=== PATIENT | female | born 1965 | race Caucasian/White ===

== ENCOUNTER 2020-10-30 23:17 | Emergency (ER) | payer OTHER ==
[2020-10-30] MEDS ORDERED: PIPERACILLIN/TAZOB 4.5 GM 4.5 GM in DEXTROSE 5%-WATER 100 ML IVPB ONE (23:29)
[2020-10-30] MEDS ORDERED: PIPERACILLIN/TAZOBACTAM 4.5 GM VIAL IVPB ONE (23:35)
[2020-10-30 23:48] VITALS: BP 158/80; PULSE 70; TEMP 97.5; BMI 39.3
[2020-10-31] MEDS ORDERED: DIPHTH,PERTUSS(ACELL),TET 0.5 ML DISP.SYRIN IM ONE ×2 (00:26→00:28)
== END 2020-10-31 00:31 | disposition home or self-care (01) ==
LOC: FER 23:17
PROC: 3E0234Z Introduction of Serum, Toxoid and Vaccine into Muscle, Percutaneous Approach (ICD-10-PCS; principal; 2020-10-30)
PROC: 3E03329 Introduction of Other Anti-infective into Peripheral Vein, Percutaneous Approach (ICD-10-PCS; 2020-10-30)
DX: S91.052A Open bite, left ankle, initial encounter (principal)
CPT/HCPCS: 90715; 99284-25